=== PATIENT | female | born 1965 | race Caucasian/White ===

== ENCOUNTER 2018-07-02 20:22 | Emergency (ER) | payer OTHER ==
[2018-07-02] MEDS: ONDANSETRON 4 MG INJ IV (22:24)
[2018-07-02] MEDS: morphine 4 MG/ML VIAL IV ×2 (22:25→23:19)
[2018-07-02 22:35] LABS: ADD MAN DIFF? NO
[2018-07-02 22:37] LABS: BASOPHILS % 0.5 % (0.0-2.0); EOSINOPHILS # 0.1 10^3/ul (0.0-0.5); EOSINOPHILS % 0.9 % (0.0-7.0); HEMATOCRIT 32.2 % (37.0-47.0); HEMOGLOBIN 10.7 g/dl (12.0-16.0); LYMPHOCYTES % 15.3 % (15.0-51.0); MEAN CORPUSCULAR HEMOGLOBIN 34.1 pg (29.0-33.0); MEAN CORPUSCULAR HGB CONC 33.2 g/dl (32.0-37.0); MEAN CORPUSCULAR VOLUME 102.5 fl (82.0-101.0); MEAN PLATELET VOLUME 11.2 fl (7.4-10.4); MONOCYTE # 0.4 10^3/ul (0.3-0.9); MONOCYTES % 6.9 % (0.0-11.0); NEUTROPHIL # 4.9 10^3/ul (1.6-7.5); NEUTROPHILS % 75.9 % (39.0-77.0); PLATELET COUNT 173 10^3/UL (140-415); RED BLOOD COUNT 3.14 10^6/ul (4.20-5.40); RED CELL DISTRIBUTION WIDTH 12.9 % (11.5-14.5)
[2018-07-02 22:37] LABS: WHITE BLOOD COUNT 6.4 10^3/ul (4.8-10.8)
[2018-07-02 22:45] LABS: ANION GAP 15 (5-13); BLOOD UREA NITROGEN 25 mg/dl (7-20); CALCIUM 10.8 mg/dl (8.4-10.2); CARBON DIOXIDE 26 mmol/L (21-31); CHLORIDE 101 mmol/L (97-110); CREATININE 3.95 mg/dl (0.44-1.00); Estimated GFR 12 mL/min (>60); GLUCOSE 111 mg/dl (70-220); POTASSIUM 4.7 mmol/L (3.5-5.1); SODIUM 142 mmol/L (135-144)
[2018-07-02 22:51] LABS: C-REACTIVE PROTEIN < 0.5 mg/dl (0.0-0.9)
[2018-07-02 23:44] LABS: ERYTHROCYTE SEDIMENTATION RATE 55 mm/Hr (0-30)
[2018-07-03 01:16] LABS: URIC ACID 2.5 mg/dl (3.1-7.9)
== END 2018-07-03 02:25 | disposition short-term general hospital (02) ==
LOC: E/R 07-03 02:25
DX: M25.461 Effusion, right knee (principal); N18.6 End stage renal disease; D50.9 Iron deficiency anemia, unspecified; R70.0 Elevated erythrocyte sedimentation rate; Z99.2 Dependence on renal dialysis
CPT/HCPCS: 73562; 80048; 84560; 85025; 85651; 86140; 96374; 96375; 96376; 99285-25